=== PATIENT | male | born 2000 | race Caucasian/White ===

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

== ENCOUNTER 2020-03-18 14:21 | Emergency (ER) | payer MEDICAID, OTHER ==
[~2020-03-18] VITALS: Ht 180.3 cm; Wt 99.8 kg
[2020-03-18 15:43] VITALS: BP 121/74
== END 2020-03-18 16:49 | disposition home or self-care (01) ==
LOC: ER 14:21
DX: S00.81XA Abrasion of other part of head, initial encounter (principal); W16.822A Jumping or diving into other water striking bottom causing other injury, initial encounter; Y93.89 Activity, other specified; Y92.89 Other specified places as the place of occurrence of the external cause; Y99.8 Other external cause status
CPT/HCPCS: 70450; 70486